=== PATIENT | female | born 2000 | race African-American/Black ===

== ENCOUNTER 2024-03-13 21:21 | Emergency (ER) | payer MEDICAID, OTHER ==
[~2024-03-13] VITALS: Ht 167.6 cm; Wt 70.0 kg
[~2024-03-13 21:21] MED LIST: TYLENOL W CODEINE
[2024-03-13 21:48] VITALS: BP 126/78; PULSE 76; RESP 16; TEMP 98.5; O2SAT 99
== END 2024-03-13 23:07 | disposition left against medical advice (07) ==
LOC: ER 21:21
DX: R20.2 Paresthesia of skin (principal); Z53.21 Procedure and treatment not carried out due to patient leaving prior to being seen by health care provider